=== PATIENT | female | born 1990 | race Two or more races ===

== ENCOUNTER 2019-06-09 18:25 | Emergency (ER) | payer OTHER ==
[~2019-06-09] VITALS: Ht 167.6 cm; Wt 92.6 kg
[2019-06-09 21:21] VITALS: BP 117/62
== END 2019-06-09 22:07 | disposition home or self-care (01) ==
LOC: ED 22:00
DX: R10.11 Right upper quadrant pain (principal); R10.13 Epigastric pain
CPT/HCPCS: 36415; 80053; 81003; 83690; 85025; 99283